=== PATIENT | male | born 1970 | race Caucasian/White ===

== ENCOUNTER 2024-02-28 07:11 | Emergency (ER) | payer MEDICAID, OTHER ==
[~2024-02-28] VITALS: Ht 165.1 cm; Wt 95.3 kg
[2024-02-28 07:26] VITALS: O2SAT 97
== END 2024-02-28 08:05 | disposition home or self-care (01) ==
LOC: ER 07:11
DX: T18.5XXA Foreign body in anus and rectum, initial encounter (principal); X58.XXXA Exposure to other specified factors, initial encounter; Y93.89 Activity, other specified; Y92.89 Other specified places as the place of occurrence of the external cause; Y99.8 Other external cause status
CPT/HCPCS: A4606; A4663